=== PATIENT | male | born 1960 | race Caucasian/White ===

== ENCOUNTER 2017-11-30 14:34 | Observation (INO) | payer MEDICAID ==
[2017-11-30] MEDS ORDERED: Sodium Chloride 0.9% 1,000 ML IV ONE (14:43)
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
[2017-11-30 15:29] LABS: CHLORIDE,CL 104 mmol/L (98-107); SODIUM,NA 139 mmol/L (136-148)
--- NOTE | 2017-11-30 15:41 | CR ---
EXAMINATION: Portable chest radiograph. HISTORY: Syncope. FINDINGS: The trachea is midline. The cardiomediastinal silhouette is within normal limits. No pulmonary infilt rates, effusions or pneumothorax. Osseous structures appear unremarkable. IMPRESSION: No acute cardiopulmonary process.
[2017-11-30] MEDS ORDERED: Morphine 4 MG/ML Syringe IVPUSH PRN (18:34)
[2017-11-30] MEDS ORDERED: Sodium Chloride 0.9% 2.5 ML Syringe FLUSH PRN (18:34)
[2017-11-30] MEDS ORDERED: Albuterol/Ipratropium 3.0-0.5 MG/3 ML Neb Soln NEB PRN (18:34)
[2017-11-30] MEDS ORDERED: Sodium Chloride 0.9% 10 ML Syringe FLUSH PRN (18:34)
[2017-11-30] MEDS ORDERED: Albuterol 0.083% 2.5 MG/3 ML Neb Soln NEB PRN (20:11)
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
[2017-11-30] MEDS: Pantoprazole 40 MG Vial IVPUSH SCH (21:02)
[2017-12-01 06:45] LABS: CHLORIDE,CL 106 mmol/L (98-107); SODIUM,NA 138 mmol/L (136-148)
[2017-12-01] MEDS: Pantoprazole 40 MG Vial IVPUSH SCH ×2 (10:36→20:48)
--- NOTE | 2017-12-01 10:57 | CT ---
EXAM DATE: 11/30/17 PATIENT'S AGE: 57 Patient: LENNOX DIAZ Facility: [place], [place] Site . Site : 1960 Study: CT Head [id number] 3:28:39 PM Ordering Physician: Doctor Choudhury Final Report: INDICATION: Syncope TECHNIQUE: Head CT without contrast. COMPARISON: None FINDINGS: CSF spaces: Within normal limits for age. Brain parenchyma: Normal moore-white junction. No sign of mass, hemorrhage, or midline shift. Skull base and calvarium: The visualized paranasal sinuses and mastoid air cells demonstrate no acute or significant findings. The visualized orbits are grossly unremarkable. No skull fractures. IMPRESSION: No acute abnormality. Please note that all CT scans at this facility use dose modulation, iterative reconstruction, and/or weight-based dosing when appropriate to reduce radiation dose to as low as reasonably achievable. Dictated by Samra Jaramillo MD @ Nov 30 2017 4:05PM (Electronic Signature) Report Signed by Proxy. MTDD
[2017-12-01] MEDS: Sucralfate 1 GM Tab PO SCH ×3 (11:53→20:47)
--- NOTE | 2017-12-01 14:05 | US ---
EXAMINATION: Carotid US with moore scale and duplex imaging. HISTORY: Syncope FINDINGS: Ultrasound examination of bilateral cervical carotid arteries was performed using moore scale and dupl ex imaging. Mild to moderate scattered atheromatous plaque noted within the carotid arteries bilater ally. Antegrade flow is noted within the vertebrals. These are the peak velocities in cm per second (systole), right and left respectively, by a comma: CCA (common carotid artery) - 89, 94 ICA (internal carotid artery) - 111, 81 ECA (External carotid artery) - 108, 58 ICA/CCA systolic ratio Right - 1.6 Left - 0.9 IMPRESSION: 1. Atheromatous changes noted within the internal carotid arteries without elevated velocities, sugge sting less than 50% stenosis.
[2017-12-01] MEDS: Ferrous Sulfate 325 MG Tab PO SCH (16:39)
[2017-12-01] MEDS ORDERED: Ferrous Sulfate 325 MG Tab PO SCH (17:30)
--- NOTE | 2017-12-01 18:41 | PCM.PN ---
<Lang Parikh - Last Filed: 12/01/17 18:36> - General Info Date of Service: 12/01/17 Admission Dx/Problem (Free Text): Admission Diagnosis/Problem Admission Diagnosis/Problem Syncope Subjective Update: Patient is doing well this morning. He has no acute concerns. Is tolerating oral intake and voiding appropriately. He denies chest pain, palpitations, shortness breath, wheezing, cough, abdominal pain, nausea, vomiting, constipation, diarrhea, fever, dizziness, headaches. His hemoglobin is dropped 8.6 from 9.8. He denies any black stools or kaye red blood with bowel movements. He is concerned that he may have a gastric ulcer. He does take ibuprofen occasionally for joint pain. Functional Status: Reports: Pain Controlled, Tolerating Diet, Ambulating, Urinating - Review of Systems General: Reports: No Symptoms HEENT: Reports: No Symptoms Pulmonary: Reports: No Symptoms Cardiovascular: Reports: No Symptoms Gastrointestinal: Reports: No Symptoms Genitourinary: Reports: No Symptoms Musculoskeletal: Reports: No Symptoms Skin: Reports: No Symptoms Neurological: Reports: No Symptoms Psychiatric: Reports: No Symptoms - Patient Data Vitals - Most Recent: Last Vital Signs Temp 98.5 F 12/01/17 16:00 Pulse 80 12/01/17 16:00 Resp 20 12/01/17 16:00 BP 125/74 12/01/17 16:00 Pulse Ox 96 12/01/17 16:00 Orthostatic Blood Pressure [ 138/95 Standing] Orthostatic Blood Pressure [ 129/86 Sitting] Orthostatic Blood Pressure [ 143/79 Supine] Weight - Most Recent: 262 lb 3.2 oz I&O - Last 24 Hours: Intake & Output 12/01/17 12/01/17 12/01/17 06:59 14:59 22:59 Intake Total 500 1480 Output Total 275 450 Balance 225 1030 Lab Results Last 24 Hours: Laboratory Results - last 24 hr 11/30/17 11/30/17 12/01/17 Range/Units 20:35 22:18 02:37 WBC (4.0-11.0) K/uL RBC (4.50-5.90) M/uL Hgb (13.0-17.0) g/dL Hct (38.0-50.0) % MCV (80.0-98.0) fL MCH (27.0-32.0) pg MCHC (31.0-37.0) g/dL RDW Std Deviation (28.0-62.0) fl RDW Coeff of Buddy (11.0-15.0) % Plt Count (150-400) K/uL MPV (7.40-12.00) fL Nucleated RBC % /100WBC Nucleated RBCs # K/uL D-Dimer, Quantitative 0.41 (0.0-0.52) mg/LFEU Sodium (136-148) mmol/L Potassium (3.5-5.1) mmol/L Chloride (98-107) mmol/L Carbon Dioxide (21.0-32.0) mmol/L BUN (7.0-18.0) mg/dL Creatinine (0.8-1.3) mg/dL Est Cr Clr Drug Dosing mL/min Estimated GFR (MDRD) ml/min Glucose (74-106) mg/dL Calcium (8.5-10.1) mg/dL Magnesium (1.5-2.0) mg/dL Iron (50-175) ug/dL TIBC (250-450) ug/dL % Saturation (20-55) % Ferritin (26-388) ng/mL Total Bilirubin (0.2-1.0) mg/dL AST (15-37) IU/L ALT (14-63) IU/L Alkaline Phosphatase (46-116) U/L Troponin I < 0.050 < 0.050 (0.000-0.056) ng/mL Total Protein (6.4-8.2) g/dL Albumin (3.4-5.0) g/dL Globulin (2.0-3.5) g/dL Albumin/Globulin Ratio (1.3-2.8) 12/01/17 12/01/17 12/01/17 Range/Units 02:37 05:40 05:40 WBC 6.22 (4.0-11.0) K/uL RBC 3.80 L (4.50-5.90) M/uL Hgb 8.6 L (13.0-17.0) g/dL Hct 29.2 L (38.0-50.0) % MCV 76.8 L (80.0-98.0) fL MCH 22.6 L (27.0-32.0) pg MCHC 29.5 L (31.0-37.0) g/dL RDW Std Deviation 42.3 (28.0-62.0) fl RDW Coeff of Buddy 15 (11.0-15.0) % Plt Count 316 (150-400) K/uL MPV 9.60 (7.40-12.00) fL Nucleated RBC % 0.0 /100WBC Nucleated RBCs # 0 K/uL D-Dimer, Quantitative (0.0-0.52) mg/LFEU Sodium 138 (136-148) mmol/L Potassium 3.8 (3.5-5.1) mmol/L Chloride 106 (98-107) mmol/L Carbon Dioxide 26.8 (21.0-32.0) mmol/L BUN 14 (7.0-18.0) mg/dL Creatinine 1.1 (0.8-1.3) mg/dL Est Cr Clr Drug Dosing 77.96 mL/min Estimated GFR (MDRD) > 60.0 ml/min Glucose 109 H (74-106) mg/dL Calcium 8.3 L (8.5-10.1) mg/dL Magnesium 1.6 (1.5-2.0) mg/dL Iron 18 L (50-175) ug/dL TIBC 353 (250-450) ug/dL % Saturation 5.10 L (20-55) % Ferritin 11 L (26-388) ng/mL Total Bilirubin 0.3 (0.2-1.0) mg/dL AST 12 L (15-37) IU/L ALT 20 (14-63) IU/L Alkaline Phosphatase 79 (46-116) U/L Troponin I (0.000-0.056) ng/mL Total Protein 6.9 (6.4-8.2) g/dL Albumin 3.1 L (3.4-5.0) g/dL Globulin 3.8 H (2.0-3.5) g/dL Albumin/Globulin Ratio 0.8 L (1.3-2.8) Geovani Results Last 24 Hours: Microbiology 12/01/17 09:33 Stool Occult Blood (GEOVANI) - Final Stool / Feces Med Orders - Current: Current Medications Albuterol (Proventil Neb Soln) 2.5 mg NEB Q2H PRN PRN Reason: Shortness Of Breath/wheezing Albuterol/Ipratropium (Duoneb 3.0-0.5 Mg/3 Ml) 3 ml NEB Q4HRRT PRN PRN Reason: Shortness Of Breath/wheezing Ferrous Sulfate (Ferrous Sulfate) 325 mg PO TIDMEALS [facility] Last Admin: 12/01/17 16:39 Dose: 325 mg Pantoprazole Sodium (Protonix Iv) 40 mg IVPUSH BID [facility] Last Admin: 12/01/17 10:36 Dose: 40 mg Sodium Chloride (Saline Flush) 10 ml FLUSH ASDIRECTED PRN PRN Reason: Keep Vein Open Sodium Chloride (Saline Flush) 2.5 ml FLUSH ASDIRECTED PRN PRN Reason: Keep Vein Open Sucralfate (Carafate) 1 gm PO QIDACANDBED [facility] Last Admin: 12/01/17 16:39 Dose: 1 gm Discontinued Medications Ferrous Sulfate (Ferrous Sulfate) 325 mg PO TIDMEALS [facility] Sodium Chloride (Normal Saline) 1,000 mls @ 999 mls/hr IV STAT ONE Stop: 11/30/17 15:43 Last Admin: 11/30/17 14:57 Dose: 999 mls/hr Morphine Sulfate (Morphine) 2 mg IVPUSH Q2H PRN PRN Reason: Pain (severe 7-10) Stop: 12/01/17 18:35 - Exam General: Alert, Oriented, Cooperative, No Acute Distress Lungs: Clear to Auscultation, Normal Respiratory Effort Cardiovascular: Regular Rate, Regular Rhythm GI/Abdominal Exam: Normal Bowel Sounds, Soft, Non-Tender, No Organomegaly, No Distention, No Abnormal Bruit, No Mass, Pelvis Stable Extremities: Normal Inspection, Normal Range of Motion, Non-Tender, No Pedal Edema, Normal Capillary Refill Peripheral Pulses: 2+: Radial (L), Radial (R), Posterior Tibial (L), Posterior Tibial (R) Skin: Warm, Dry, Intact Neurological: No New Focal Deficit Psy/Mental Status: Alert, Normal Affect, Normal Mood - Problem List & Annotations (1) Iron deficiency anemia SNOMED Code(s): 76013493 Code(s): D50.9 - IRON DEFICIENCY ANEMIA, UNSPECIFIED Status: Acute Current Visit: Yes (2) Syncope SNOMED Code(s): 302406386 Code(s): R55 - SYNCOPE AND COLLAPSE Status: Acute Current Visit: Yes Qualifiers: Syncope type: unspecified Qualified Code(s): R55 - Syncope and collapse - Problem List Review Problem List Initiated/Reviewed/Updated: Yes - My Orders Last 24 Hours: My Active Orders 12/01/17 11:30 Sucralfate [Carafate] 1 gm PO QIDACANDBED - Plan Plan:: 57-year-old male admitted with syncope. #1. Syncope: -Patient remains on telemetry which shows normal sinus rhythm with heart rate between 60-70 bpm. -Carotid ultrasound was unremarkable. Echocardiogram is pending. -Serial troponins 3 are negative. #2. Iron deficiency anemia: -Hemoglobin has dropped to 8.6 from a previous high of 9.8. Patient denies black or bloody stools. -Patient was Hemoccult negative. -Iron studies are suggestive of iron deficiency anemia. Patient started on iron sulfate 325 mg 3 times a day with meals. Patient also started on Carafate. -I spoke with Dr. Drake, surgeon, in regards to possibly doing an EGD and colonoscopy while the patient is admitted. He recommends that if the patient is hemodynamically stable, that this can be done as an outpatient. Patient does remain hemodynamically stable. -Continue IV Protonix for possible upper GI bleed. -Repeat CBC in the morning. DVT prophylaxis: SCDs Disposition: 1-2 days pending improvement. <Shruthi Wilkins - Last Filed: 12/01/17 18:45> - Patient Data Vitals - Most Recent: Last Vital Signs Temp 98.5 F 12/01/17 16:00 Pulse 80 12/01/17 16:00 Resp 20 12/01/17 16:00 BP 125/74 12/01/17 16:00 Pulse Ox 96 12/01/17 16:00 Orthostatic Blood Pressure [ 138/95 Standing] Orthostatic Blood Pressure [ 129/86 Sitting] Orthostatic Blood Pressure [ 143/79 Supine] I&O - Last 24 Hours: Intake & Output 12/01/17 12/01/17 12/01/17 06:59 14:59 22:59 Intake Total 500 1480 Output Total 275 450 Balance 225 1030 Lab Results Last 24 Hours: Laboratory Results - last 24 hr 11/30/17 11/30/17 12/01/17 Range/Units 20:35 22:18 02:37 WBC (4.0-11.0) K/uL RBC (4.50-5.90) M/uL Hgb (13.0-17.0) g/dL Hct (38.0-50.0) % MCV (80.0-98.0) fL MCH (27.0-32.0) pg MCHC (31.0-37.0) g/dL RDW Std Deviation (28.0-62.0) fl RDW Coeff of Buddy (11.0-15.0) % Plt Count (150-400) K/uL MPV (7.40-12.00) fL Nucleated RBC % /100WBC Nucleated RBCs # K/uL D-Dimer, Quantitative 0.41 (0.0-0.52) mg/LFEU Sodium (136-148) mmol/L Potassium (3.5-5.1) mmol/L Chloride (98-107) mmol/L Carbon Dioxide (21.0-32.0) mmol/L BUN (7.0-18.0) mg/dL Creatinine (0.8-1.3) mg/dL Est Cr Clr Drug Dosing mL/min Estimated GFR (MDRD) ml/min Glucose (74-106) mg/dL Calcium (8.5-10.1) mg/dL Magnesium (1.5-2.0) mg/dL Iron (50-175) ug/dL TIBC (250-450) ug/dL % Saturation (20-55) % Ferritin (26-388) ng/mL Total Bilirubin (0.2-1.0) mg/dL AST (15-37) IU/L ALT (14-63) IU/L Alkaline Phosphatase (46-116) U/L Troponin I < 0.050 < 0.050 (0.000-0.056) ng/mL Total Protein (6.4-8.2) g/dL Albumin (3.4-5.0) g/dL Globulin (2.0-3.5) g/dL Albumin/Globulin Ratio (1.3-2.8) 12/01/17 12/01/17 12/01/17 Range/Units 02:37 05:40 05:40 WBC 6.22 (4.0-11.0) K/uL RBC 3.80 L (4.50-5.90) M/uL Hgb 8.6 L (13.0-17.0) g/dL Hct 29.2 L (38.0-50.0) % MCV 76.8 L (80.0-98.0) fL MCH 22.6 L (27.0-32.0) pg MCHC 29.5 L (31.0-37.0) g/dL RDW Std Deviation 42.3 (28.0-62.0) fl RDW Coeff of Buddy 15 (11.0-15.0) % Plt Count 316 (150-400) K/uL MPV 9.60 (7.40-12.00) fL Nucleated RBC % 0.0 /100WBC Nucleated RBCs # 0 K/uL D-Dimer, Quantitative (0.0-0.52) mg/LFEU Sodium 138 (136-148) mmol/L Potassium 3.8 (3.5-5.1) mmol/L Chloride 106 (98-107) mmol/L Carbon Dioxide 26.8 (21.0-32.0) mmol/L BUN 14 (7.0-18.0) mg/dL Creatinine 1.1 (0.8-1.3) mg/dL Est Cr Clr Drug Dosing 77.96 mL/min Estimated GFR (MDRD) > 60.0 ml/min Glucose 109 H (74-106) mg/dL Calcium 8.3 L (8.5-10.1) mg/dL Magnesium 1.6 (1.5-2.0) mg/dL Iron 18 L (50-175) ug/dL TIBC 353 (250-450) ug/dL % Saturation 5.10 L (20-55) % Ferritin 11 L (26-388) ng/mL Total Bilirubin 0.3 (0.2-1.0) mg/dL AST 12 L (15-37) IU/L ALT 20 (14-63) IU/L Alkaline Phosphatase 79 (46-116) U/L Troponin I (0.000-0.056) ng/mL Total Protein 6.9 (6.4-8.2) g/dL Albumin 3.1 L (3.4-5.0) g/dL Globulin 3.8 H (2.0-3.5) g/dL Albumin/Globulin Ratio 0.8 L (1.3-2.8) Geovani Results Last 24 Hours: Microbiology 12/01/17 09:33 Stool Occult Blood (GEOVANI) - Final Stool / Feces Med Orders - Current: Current Medications Albuterol (Proventil Neb Soln) 2.5 mg NEB Q2H PRN PRN Reason: Shortness Of Breath/wheezing Albuterol/Ipratropium (Duoneb 3.0-0.5 Mg/3 Ml) 3 ml NEB Q4HRRT PRN PRN Reason: Shortness Of Breath/wheezing Ferrous Sulfate (Ferrous Sulfate) 325 mg PO TIDMEALS [facility] Last Admin: 12/01/17 16:39 Dose: 325 mg Pantoprazole Sodium (Protonix Iv) 40 mg IVPUSH BID [facility] Last Admin: 12/01/17 10:36 Dose: 40 mg Sodium Chloride (Saline Flush) 10 ml FLUSH ASDIRECTED PRN PRN Reason: Keep Vein Open Sodium Chloride (Saline Flush) 2.5 ml FLUSH ASDIRECTED PRN PRN Reason: Keep Vein Open Sucralfate (Carafate) 1 gm PO QIDACANDBED [facility] Last Admin: 12/01/17 16:39 Dose: 1 gm Discontinued Medications Ferrous Sulfate (Ferrous Sulfate) 325 mg PO TIDMEALS [facility] Sodium Chloride (Normal Saline) 1,000 mls @ 999 mls/hr IV STAT ONE Stop: 11/30/17 15:43 Last Admin: 11/30/17 14:57 Dose: 999 mls/hr Morphine Sulfate (Morphine) 2 mg IVPUSH Q2H PRN PRN Reason: Pain (severe 7-10) Stop: 12/01/17 18:35 - Problem List & Annotations (1) Anemia SNOMED Code(s): 095376959 Code(s): D64.9 - ANEMIA, UNSPECIFIED Status: Acute Current Visit: Yes Qualifiers: Anemia type: unspecified type Qualified Code(s): D64.9 - Anemia, unspecified (2) Syncope SNOMED Code(s): 086010659 Code(s): R55 - SYNCOPE AND COLLAPSE Status: Acute Current Visit: Yes Qualifiers: Syncope type: unspecified Qualified Code(s): R55 - Syncope and collapse (3) Iron deficiency anemia SNOMED Code(s): 49894382 Code(s): D50.9 - IRON DEFICIENCY ANEMIA, UNSPECIFIED Status: Acute Current Visit: Yes - My Orders Last 24 Hours: My Active Orders 11/30/17 18:34 Oxygen Therapy [RC] PRN Up ad Alyse [RC] ASDIRECTED Vital Signs [RC] Q4H Albuterol/Ipratropium [DuoNeb 3.0-0.5 MG/3 ML] 3 ml NEB Q4HRRT PRN Sodium Chloride 0.9% [Saline Flush] 10 ml FLUSH ASDIRECTED PRN Sodium Chloride 0.9% [Saline Flush] 2.5 ml FLUSH ASDIRECTED PRN Peripheral IV Insertion Adult [OM.PC] Routine Saline Lock Insert [OM.PC] Routine 11/30/17 18:35 Pulse Oximetry [RC] PRN Sequential Compression Device [OM.PC] Per Unit Routine 11/30/17 18:36 RT Aerosol Therapy [RC] ASDIRECTED 11/30/17 20:11 Oxygen Therapy [RC] PRN Up ad Alyse [RC] ASDIRECTED VTE/DVT Education [RC] PER UNIT ROUTINE Vital Signs [RC] Q4H Consult to Physician [CONS] Routine Albuterol [Proventil Neb Soln] 2.5 mg NEB Q2H PRN Resuscitation Status Routine 11/30/17 20:13 Intake and Output [RC] Q12H Pulse Oximetry [RC] PRN 11/30/17 20:16 Notify Provider Consults [RC] ASDIRECTED RT Aerosol Therapy [RC] ASDIRECTED 11/30/17 20:24 Telemetry Monitoring [Cardiac Monitoring] [RC] Q8H 11/30/17 21:00 Pantoprazole [ProTONIX IV] 40 mg IVPUSH BID 12/01/17 Echo Comp wo Cont [US] Stat 12/01/17 08:35 Overnight Pulse Oximetry [RC] Click to Edit Pulse Oximetry Continuous Monitoring [OM.PC] Routine 12/01/17 08:38 Notify Provider Consults [RC] ASDIRECTED 12/01/17 09:50 Notify Provider Consults [RC] ASDIRECTED 12/01/17 10:46 Communication Order [RC] ROUTINE 12/01/17 17:30 Ferrous Sulfate 325 mg PO TIDMEALS 12/02/17 05:11 CBC W/O DIFF,HEMOGRAM [HEME] AM COMPREHENSIVE METABOLIC PN,CMP [CHEM] AM MAGNESIUM [CHEM] AM 12/03/17 05:11 CBC W/O DIFF,HEMOGRAM [HEME] AM COMPREHENSIVE METABOLIC PN,CMP [CHEM] AM MAGNESIUM [CHEM] AM - Plan Plan:: Patient seen and examined ,discussed with resident , agree with a/p. Cardiology will see patient tonight. D dimer negative Will monitor Hb. Health Underwriter recommended ischemic work up .
--- NOTE | 2017-12-01 20:37 | CONS ---
DATE OF CONSULTATION: DATE OF : 1960 PRIMARY CARE PHYSICIAN: None PCP REASON FOR CONSULTATION: Recurrent syncope. HISTORY OF PRESENT ILLNESS: This is a 57-year-old male who does not have prior cardiac history and has not seen a doctor in quite sometime. He presented to the emergency room due to the recurrent syncopal episode over the past 2 weeks. He is from [place] and he has lived here in [place] in [facility] for 2 years, here for the job. 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 Over the past 2 weeks, he stated that he has passed out at least 3-4 times he remembers. The first time he was in the bathroom, started being dizzy, lightheaded, had dry heave, and then all of a sudden he passed out. The warning symptom was for about 1 minute. He remember he hit his face to the cabinet and then he woke up, he felt like tired, shaky, drain, some sweating. No chest pain. No heart racing. Then, on the Wednesday morning, when he was at work and about 2:30, he started feeling dry heaves, sick, lightheaded again. The warnings symptoms lasted for about 1 to 2 minute. Then, he stopped whatever he was doing at work, then he tried to rest, and then all of a sudden he just became unconscious. He woke up. He thinks he might have been out for an hour. When he woke up, he felt like drain and tired. Another time, when he was driving home. When he was driving, he started having lightheaded. He felt like dry mouth and felt sick again and then he stopped driving, felt dizzy and then all of a sudden he passed out. When he woke up, he got wet because he vomited as well. Then, he talked about this to his son, his son told him to come to the emergency room. When he came to the emergency room, he got observed overnight in the telemetry, he did not show any significant AV block or tachycardia. He only showed occasional PVCs. EKG is unremarkable. Orthostatic vital signs negative for hypertension. Echocardiogram showed preserved ejection fraction. No significant valvular heart disease. He denied any breathing problem, dyspnea on exertion. His job is very physical and he did not have any problems with chest pain, palpitation, shortness of breath, leg swelling, leg pain, orthopnea, PND. PAST MEDICAL HISTORY: The patient denies history of diabetes, hypertension, or hyperlipidemia. SOCIAL HISTORY: He was former smoker. Drinks alcohol occasionally. No drug use. FAMILY HISTORY: No family history of CAD in his parents. ALLERGIES: He has no known drug allergy. PHYSICAL EXAMINATION: VITAL SIGNS: Initial blood pressure is 148/89, but it did come down to 125/74. The heart rate is ranging between 70 to 80s, temperature is 36.4, respiration 18 to 20, and O2 saturation is 97% on room air. HEENT: No pallor. No jaundice. Mouth, dry. HEART: Normal S1 and S2. No murmur. Regular rate and rhythm. LUNGS: Clear. No crackles. No wheezing. Equal breath sounds bilaterally. ABDOMEN: Soft, nontender. Bowel sounds are present. No hepatosplenomegaly. LEGS: No edema. LABORATORY INVESTIGATION: CBC showed WBC of 7, hematocrit of 32, hemoglobin of 9, platelet of 366. D- dimer is negative. Sodium 139, potassium 4.1, chloride 104, bicarb 26, BUN 18, creatinine 1.2. Troponin was negative x3. Iron pattern show iron deficiency. He denied bleeding in his rectum. No hematemesis as well. EKG showed sinus rhythm, heart rate of 82, DC interval 192, QRS duration 110, QTc interval 437. At the telemetry, he did not show significant AV block or significant tachycardia. He only showed PVC. Echocardiogram showing trace MR, trace TR with ejection fraction of 55% to 60%. Carotid ultrasound less than 50% stenosis. CT head is negative. Troponin was negative x3. ASSESSMENT AND PLAN: This is a 57-year-old male without prior cardiac history, presented to hospital because of syncope. His symptoms sounded to me like a vasovagal syncope; there is no apparent trigger. Currently, there is no arrhythmia detected on EKG or telemetry. His echo did not show any abnormal structure or heart problem and he has been ruled out for ACS. Head CT, carotid Doppler is negative. The vasovagal syncope could be recurred, so he gets the wanting symptom, he should stop the activity that he is doing and just lay down and rest his leg. Also, he should wear compression stocking as well as he would need ischemic workup done as an outpatient, 3-day heart monitor, and he should avoid driving. If the syncope recurred, we will recommend to check risk factor for CAD including diabetes and lipid panel. We will check a TSH as well. LO RUSS /[id number]
[2017-12-02 05:42] LABS: CHLORIDE,CL 104 mmol/L (98-107); SODIUM,NA 139 mmol/L (136-148)
[2017-12-02] MEDS: Sucralfate 1 GM Tab PO SCH ×2 (06:40→10:56)
[2017-12-02] MEDS: Ferrous Sulfate 325 MG Tab PO SCH ×2 (08:20→12:43)
[2017-12-02] MEDS: Pantoprazole 40 MG Vial IVPUSH SCH (08:20)
--- NOTE | 2017-12-03 18:23 | ECHO ---
The echocardiogram report can be seen in this patient's EMR (electronic medical record) in the Reports section. The echocardiogram report has also been scanned into PACS and can be seen there. JEFFERY
== END 2017-12-02 13:10 | disposition home or self-care (01) ==
LOC: MW.ED 14:34 → MW.MS 16:39
PROVIDERS: ADMIT Internal Medicine; ATTEND Internal Medicine
DX: R55 Syncope and collapse (principal); E66.9 Obesity, unspecified; D50.9 Iron deficiency anemia, unspecified; Z87.891 Personal history of nicotine dependence
CPT/HCPCS: 36415; 70450; 71045; 80053; 80061; 82272; 82728; 83036; 83550; 83735; 84443; 84484; 85025; 85027; 85379; 93306; 93880; 96361; 96374; 96376; 99285; A9270; C9113; G0378; J7040; 96360

== ENCOUNTER 2018-02-18 07:47 | Day surgery (SDC) | payer MEDICAID ==
[~2018-02-18 07:47] MED LIST: Lactated Ringers 1,000 ML IV SCH
[2018-02-18] MEDS ORDERED: Propofol 200 MG/20 ML SDV ONE ×3 (08:24→09:52)
[2018-02-18] MEDS ORDERED: Lidocaine 2% 5 ML SDV ONE (08:24)
[2018-02-18] MEDS ORDERED: fentaNYL 100 MCG/2 ML SDV ONE (08:24)
--- NOTE | 2018-02-18 08:53 | PCM.PREANE ---
Preanesthetic Assessment - Procedure Proposed Procedure: EGD and colonoscopy for anemia - Anesthesia/Transfusion/Family Hx Anesthesia History: Prior Anesthesia Without Reaction Transfusion History: Prior Transfusion Without Reaction - Review of Systems General: No Symptoms Pulmonary: No Symptoms Cardiovascular: Other (recent episode of syncope and was seen in ER and HGB was 8.6. Pt admitted and recieved PRBC) Gastrointestinal: No Symptoms Neurological: No Symptoms Other: Reports: None - Physical Assessment NPO Status Date: 02/17/18 NPO Status Time: 20:00 O2 Sat by Pulse Oximetry: 93 Respiratory Rate: 16 Vital Signs: Last Vital Signs Temp 36.6 C 02/18/18 08:33 Pulse 87 02/18/18 08:33 Resp 16 02/18/18 08:33 BP 119/73 02/18/18 08:33 Pulse Ox 93 L 02/18/18 08:33 Height: 5 ft 11 in Weight: 117.48 kg ASA Class: 2 Mental Status: Alert & Oriented x3 Airway Class: Mallampati = 1 Dentition: Reports: Missing Tooth/Teeth (bottom left tooth) Thyro-Mental Finger Breadths: 3 Mouth Opening Finger Breadths: 3 ROM/Head Extension: Full - Allergies Allergies/Adverse Reactions: Allergies Allergy/AdvReac Type Severity Reaction Status Date / Time No Known Allergies Allergy Verified 02/15/18 08:30 - Blood Blood Available: No - Acknowledgements Anesthesia Type Planned: MAC Pt an Appropriate Candidate for the Planned Anesthesia: Yes Alternatives and Risks of Anesthesia Discussed w Pt/Guardian: Yes Pt/Guardian Understands and Agrees with Anesthesia Plan: Yes PreAnesthesia Questionnaire - Past Health History Medical/Surgical History: Denies Medical/Surgical History Cardiovascular History: Reports: High Cholesterol, Syncope Other Cardiovascular History: EKG 11/30/17 Sinus Rhythm, Echo EF 55-60% normal findings Musculoskeletal History: Reports: Arthritis, Back Pain, Chronic Neurological History: Reports: Head Trauma Psychiatric History: Reports: Anxiety Endocrine/Metabolic History: Reports: Diabetes, Type II, Obesity/BMI 30+ Hematologic History: Reports: Anemia - Past Surgical History Head Surgeries/Procedures: Reports: None - SUBSTANCE USE Smoking Status *Q: Former Smoker Tobacco Use Within Last Twelve Months: Cigarettes Recreational Drug Use History: No - HOME MEDS Home Medications: Home Meds Pantoprazole Sodium [Protonix] 40 mg PO DAILY #30 tablet. 12/02/17 [Rx] RX: Ferrous Sulfate 325 mg PO TIDMEALS #90 tablet 12/02/17 [Rx] RX: metFORMIN [Glucophage XR] 500 mg PO BIDMEALS #60 tab.er 12/02/17 [Rx] Sucralfate [Carafate] 1 gm PO QID #120 tablet 12/02/17 [Rx] RX: Rosuvastatin Calcium 20 mg PO DAILY 02/15/18 [History] - CURRENT (IN HOUSE) MEDS Current Meds: Current Medications Lactated Ringer's (Ringers, Lactated) 1,000 mls @ 125 mls/hr IV ASDIRECTED LUX Discontinued Medications Fentanyl (Sublimaze) Confirm Administered Dose 100 mcg .ROUTE .STK-MED ONE Stop: 02/18/18 08:25 Lidocaine (Xylocaine-Mpf 2%) Confirm Administered Dose 5 ml .ROUTE .STK-MED ONE Stop: 02/18/18 08:25 Propofol (Diprivan 20 Ml) Confirm Administered Dose 400 mg .ROUTE .STK-MED ONE Stop: 02/18/18 08:25
[2018-02-18] MEDS ORDERED: Midazolam 1 MG/ML 2 ML SDV ONE (09:40)
--- NOTE | 2018-02-18 10:13 | PCM.OPNOTE ---
- General Post-Op/Procedure Note Date of Surgery/Procedure: 02/18/18 Operative Procedure(s): 1) egd w bx. 2) colonoscopy w snare polypectomy Findings: see dict [id number] Pre Op Diagnosis: anemia Post-Op Diagnosis: Same Anesthesia Technique: Moderate Sedation Primary Surgeon: Shahid Adam Pathology: 1) egd bx 2) colon mass, tattooed, apple core, at 90cm when scope went in; 1 cm pedunculated polyp at 9 cm Complications: None Condition: Good
--- NOTE | 2018-02-18 10:40 | PCM.POSTAN ---
POST ANESTHESIA ASSESSMENT - MENTAL STATUS Mental Status: Alert, Oriented - RESPIRATORY Respiratory Status: Respiratory Rate WNL, Airway Patent, O2 Saturation Stable - CARDIOVASCULAR CV Status: Pulse Rate WNL, Blood Pressure Stable - GASTROINTESTINAL GI Status: No Symptoms - PAIN Pain Score: 0 - POST OP HYDRATION Hydration Status: Adequate & Stable
--- NOTE | 2018-02-18 10:58 | PCM48HPAN ---
Post Anesthesia Note - EVALUATION WITHIN 48HRS OF ANESTHETIC Vital Signs in Normal Range: Yes Patient Participated in Evaluation: Yes Respiratory Function Stable: Yes Airway Patent: Yes Cardiovascular Function Stable: Yes Hydration Status Stable: Yes Pain Control Satisfactory: Yes Nausea and Vomiting Control Satisfactory: Yes Mental Status Recovered: Yes Resp Rate: 13
--- NOTE | 2018-02-18 13:28 | OR ---
SURGEON: Shahid Adam MD DATE OF PROCEDURE: 02/18/2018 PREOPERATIVE DIAGNOSIS: Anemic, requiring blood transfusion. POSTOPERATIVE DIAGNOSIS: Colon mass. PROCEDURES PERFORMED: EGD with biopsy and colonoscopy with biopsy and snare polypectomy. PROCEDURE IN DETAIL: EGD: The patient was taken to the endoscopy room, and with the WOOL FLEECE SORTER, Diprivan was administered. A well-lubricated EGD scope was gently inserted through the oropharynx, down the esophagus, passing through the gastroesophageal junction, into the stomach. The mucosa was examined upon the passage. Any etiology will be noted. Once in the stomach, we continued to advance to the distal antrum, passed through the pylorus into the second portion of the duodenum. Again, the mucosa was examined for any abnormality and etiology. The scope was then retrieved back to the stomach and then retroflexed to look at the fundus of the stomach. If a biopsy was indicated, we will biopsy the antrum, body, and gastroesophageal junction. The air will be sucked out while the scope is retrieved to reduce the patient's discomfort. The patient tolerated the procedure well. There were no intraoperative complications. Dr. Adam was present through the whole procedure. Prior to surgery, a time-out had been called, the patient identified, procedure identified and antibiotic administered. The patient was taken to the endoscopy room. A time out was called, patient identified, and procedure identified. Diprivan was then administrated. Patient went from awake to sleep, hearing doctor talking or door closing is normal. Perineum inspection and digital examination were then performed. A well- lubricated colonoscope was gently inserted through the rectum, advanced past the rectosigmoid junction, the descending colon, splenic flexure, transverse colon, hepatic flexure, ascending colon, arrived to the cecum. Cecum was identified as dictated in the finding. Then the scope was carefully withdrawn while attention was paid to the mucosal surface for any abnormality. Air will be sucked out during the scope withdrawal. At the rectum, retroflexed to examine any rectal diseases, fistula or hemorrhoids. During mucosal examination, abnormality or polyp encountered. Using snare equipment, the abnormality or the polyp was then snared off using electrocautery. The Patient tolerated procedure well. There were no intraoperative complications, and Dr. Adam was present throughout the whole procedure. EGD FINDINGS: 1. The patient is easily sedated with WOOL FLEECE SORTER and Diprivan, the patient is soundly snoring. 2. Oropharynx and proximal esophagus are free of disease and no stricture or inflammation. Mild salmon color change consistent with mild acid reflux. Stomach rugae is normal in appearance. Antrum is grossly normal and duodenum is grossly normal. A retroflexed look at the fundus of stomach, there is no hiatal hernia. Biopsy done at antrum, body, and GE junction at 40 and sucked out the guess while scope pulling out. COLONOSCOPY FINDIN. The patient is easily sedated with WOOL FLEECE SORTER and Diprivan, the patient is soundly snoring. 2. Bowel prep is average with some liquid stool, no semi-formed stool. 3. The patient's colon is straight forward and we cannot finish the colonoscopy as there is apple-core lesion and it is very tight and we cannot get through. That was tattooed. The patient has mild diverticulosis. The scope is up to 1.2 meters and the ileocecal valve is not able to be observed. Encountered tight apple-core lesion at distance of 900. 4. Biopsy was done and the area was tattooed with ink. There was also mild diverticulosis. No signs or symptoms of diverticulitis. Random biopsy has been done as that was seen as a little bit inflamed and random biopsy was done at 1 m, some kind like a colitis. The patient has a 1 cm pedunculated polyp at distance of 10 cm in the colonoscope. It was removed with snare polypectomy and sent for pathology. The patient does not have internal hemorrhoids. The patient has external hemorrhoids. The patient will come back to the office and discuss about the management of the apple-core lesion and workup will include CAT scan with p.o. and IV contrast. DANIEL RUSS /[id number]
== END 2018-02-18 11:15 | disposition home or self-care (01) ==
LOC: MW.SDS 07:47
PROVIDERS: ATTEND Surgery
DX: D64.9 Anemia, unspecified (principal); C18.9 Malignant neoplasm of colon, unspecified; D12.8 Benign neoplasm of rectum; K29.00 Acute gastritis without bleeding; K29.50 Unspecified chronic gastritis without bleeding; B96.81 Helicobacter pylori [H. pylori] as the cause of diseases classified elsewhere; K20.9 Esophagitis, unspecified; K57.30 Diverticulosis of large intestine without perforation or abscess without bleeding; K64.4 Residual hemorrhoidal skin tags; E11.9 Type 2 diabetes mellitus without complications; E66.9 Obesity, unspecified; Z68.36 Body mass index [BMI] 36.0-36.9, adult; E78.00 Pure hypercholesterolemia, unspecified; F41.9 Anxiety disorder, unspecified; Z87.891 Personal history of nicotine dependence; Z79.84 Long term (current) use of oral hypoglycemic drugs; Z79.899 Other long term (current) drug therapy
CPT/HCPCS: 43239; 45381; 45385; 82962; J2250; J3010; J2704

== ENCOUNTER 2018-05-13 08:11 | Day surgery (SDC) | payer MEDICAID ==
[~2018-05-13 08:11] MED LIST changes: +Lidocaine 2% 5 ML SDV ONE; +Midazolam 1 MG/ML 2 ML SDV ONE; +Propofol 200 MG/20 ML SDV ONE; +ceFAZolin 2 GM in Premix Bag 1 BAG IV SCH; +fentaNYL 100 MCG/2 ML SDV ONE
--- NOTE | 2018-05-13 09:15 | PCM.PREANE ---
Preanesthetic Assessment - Procedure Proposed Procedure: port placement for chemotherapeutics - Anesthesia/Transfusion/Family Hx Anesthesia History: Prior Anesthesia Reaction Family History of Anesthesia Reaction: No Transfusion History: No Prior Transfusion(s) Intubation History: Unknown Additional History: s/p robotic assisted right hemicolectomy surgery - Review of Systems General: No Symptoms Pulmonary: Shortness of Breath, Other (quit smoking recently) Cardiovascular: Other (HLD) Gastrointestinal: Other (GERD/PUD) Other: Reports: Diabetes - Physical Assessment NPO Status Date: 05/12/18 NPO Status Time: 22:00 O2 Sat by Pulse Oximetry: 97 Height: 5 ft 11 in Weight: 239 lb ASA Class: 3 Mental Status: Alert & Oriented x3 Airway Class: Mallampati = 1 Dentition: Reports: Normal Dentition, Missing Tooth/Teeth (lower) Thyro-Mental Finger Breadths: 3 Mouth Opening Finger Breadths: 3 ROM/Head Extension: Full Lungs: Clear to Auscultation, Normal Respiratory Effort Cardiovascular: Regular Rate, Regular Rhythm, No Murmurs - Allergies Allergies/Adverse Reactions: Allergies Allergy/AdvReac Type Severity Reaction Status Date / Time No Known Allergies Allergy Verified 05/11/18 12:52 - Blood Blood Available: No Product(s) Available: None - Anesthesia Plan Pre-Op Medication Ordered: None - Acknowledgements Anesthesia Type Planned: General Anesthesia (vs MAC/local ), MAC Pt an Appropriate Candidate for the Planned Anesthesia: Yes Alternatives and Risks of Anesthesia Discussed w Pt/Guardian: Yes Pt/Guardian Understands and Agrees with Anesthesia Plan: Yes PreAnesthesia Questionnaire - Past Health History Medical/Surgical History: Denies Medical/Surgical History HEENT History: Reports: Other (See Below) Other HEENT History: wears reading glasses, states has recently developed floaters in his field of vision Cardiovascular History: Reports: High Cholesterol Other Cardiovascular History: EKG 11/30/17 Sinus Rhythm, Echo EF 55-60% normal findings Respiratory History: Reports: Other (See Below) Other Respiratory History: former smoker Gastrointestinal History: Reports: Chronic Constipation, GERD, GI Bleed, Other ( See Below) Other Gastrointestinal History: hx of H-Pylori Musculoskeletal History: Reports: Arthritis Neurological History: Reports: Concussion, Head Trauma Psychiatric History: Reports: Anxiety Endocrine/Metabolic History: Reports: Diabetes, Type II, Obesity/BMI 30+ Hematologic History: Reports: Anemia Oncologic (Cancer) History: Reports: Colon - Past Surgical History GI Surgical History: Reports: Colon, Colonoscopy, EGD Other GI Surgeries/Procedures: hx of Right Hemicolectomy - SUBSTANCE USE Smoking Status *Q: Former Smoker Tobacco Use Within Last Twelve Months: Cigarettes Recreational Drug Use History: No - HOME MEDS Home Medications: Home Meds Ferrous Sulfate 325 mg PO TIDMEALS #90 tablet 12/02/17 [Rx] Pantoprazole Sodium [Protonix] 40 mg PO DAILY #30 tablet.dr 12/02/17 [Rx] metFORMIN [Glucophage XR] 500 mg PO BIDMEALS #60 tab.er 12/02/17 [Rx] Rosuvastatin Calcium 20 mg PO DAILY 02/15/18 [History] Sucralfate [Carafate] 1 gm PO TID 05/11/18 [History] - CURRENT (IN HOUSE) MEDS Current Meds: Current Medications Cefazolin Sodium/Dextrose 2 gm (/ Premix) 50 mls @ 100 mls/hr IV ONETIME LUX Lactated Ringer's (Ringers, Lactated) 1,000 mls @ 125 mls/hr IV ASDIRECTED LUX Discontinued Medications Fentanyl (Sublimaze) Confirm Administered Dose 100 mcg .ROUTE .STK-MED ONE Stop: 05/13/18 07:46 Lidocaine (Xylocaine-Mpf 2%) Confirm Administered Dose 5 ml .ROUTE .STK-MED ONE Stop: 05/13/18 07:45 Midazolam HCl (Versed 1 Mg/Ml) Confirm Administered Dose 2 mg .ROUTE .STK-MED ONE Stop: 05/13/18 07:46 Propofol (Diprivan 20 Ml) Confirm Administered Dose 200 mg .ROUTE .STK-MED ONE Stop: 05/13/18 07:45
[2018-05-13] MEDS ORDERED: ceFAZolin/Dextrose,Iso-Osmotic 2 GM/50 ML Duplex Bag IV ONE (09:26)
[2018-05-13] MEDS ORDERED: Bupivacaine 0.5% 10 ML SDV ONE (10:12)
[2018-05-13] MEDS ORDERED: Iopamidol 408 MG/ML 50 ML SDV ONE (10:13)
[2018-05-13] MEDS ORDERED: Heparin Sodium 100 Units/ML 3 ML Syringe ONE (10:13)
[2018-05-13] MEDS ORDERED: Lidocaine 1% 20 ML MDV ONE (10:13)
[2018-05-13] MEDS ORDERED: Propofol 200 MG/20 ML SDV ONE ×3 (11:00→12:05)
[2018-05-13] MEDS ORDERED: Ondansetron 4 MG/2 ML SDV ONE (11:22)
[2018-05-13] MEDS ORDERED: Lactated Ringers 1,000 ML IV SCH (12:15)
[2018-05-13] MEDS ORDERED: Acetaminophen/HYDROcodone 325-10 MG Tab PO PRN (12:15)
--- NOTE | 2018-05-13 12:21 | PCM.OPNOTE ---
- General Post-Op/Procedure Note Date of Surgery/Procedure: 05/13/18 Operative Procedure(s): Placement of Bard PowerPort Pre Op Diagnosis: Metastatic colon cancer Post-Op Diagnosis: Same Anesthesia Technique: Local, MAC (ASA III) Primary Surgeon: Kunal Drake Fluid Replacement, Intraop: 900 EBL in mLs: 10 Condition: Good Free Text/Narrative:: DICTATION [id number] CPT CODE [id number]
[2018-05-13] MEDS: fentaNYL 100 MCG/2 ML SDV IVPUSH PRN ×2 (12:28→12:33)
--- NOTE | 2018-05-13 12:55 | PCM.POSTAN ---
POST ANESTHESIA ASSESSMENT - MENTAL STATUS Mental Status: Alert, Oriented - RESPIRATORY Respiratory Status: Respiratory Rate WNL, Airway Patent, O2 Saturation Stable - CARDIOVASCULAR CV Status: Pulse Rate WNL, Blood Pressure Stable - GASTROINTESTINAL GI Status: No Symptoms - POST OP HYDRATION Hydration Status: Adequate & Stable
--- NOTE | 2018-05-13 13:11 | CR ---
EXAMINATION: Portable chest radiograph. HISTORY: Port-A-Cath placement. FINDINGS: The trachea is midline. The cardiomediastinal silhouette is within normal limits. No pulmonary infiltrates, effusions or pneumothorax. There is a left-sided vanessa catheter noted with tip in the SVC. Mild bibasilar atelectasis. Osseous structures appear unremarkable. IMPRESSION: No acute cardiopulmonary process.
--- NOTE | 2018-05-13 13:20 | OR ---
SURGEON: Kunal Drake M.D. DATE OF PROCEDURE: 05/13/2018 OPERATION PERFORMED: Placement of Bard PowerPort for upcoming chemotherapy. ANESTHESIA: Local MAC. ASA CLASSIFICATION: III. PREOPERATIVE DIAGNOSIS: Metastatic carcinoma of the colon. POSTOPERATIVE DIAGNOSIS: Metastatic carcinoma of the colon. ESTIMATED BLOOD LOSS: 10 mL. INTRAOPERATIVE FLUID REPLACEMENT: 900 mL of crystalloid. DESCRIPTION OF PROCEDURE: The patient was taken to the operating room and placed on the fluoroscopy table in the supine position. Surgical site had been marked prior to the patient entering the operating room. Time-out was called for appropriate identification of the patient and procedure. Monitored anesthesia care was provided. The surgical site was prepped with pHisohex and sterile drapes were applied. The skin incision was initially marked out in the deltopectoral groove. The skin was then infiltrated with 1% Xylocaine and 0.5% Marcaine solution. The skin incision was made and deepened through the subcutaneous tissue obtaining hemostasis with the use of electrocautery. Dissection in the deltopectoral groove did not reveal a satisfactory cephalic vein to work with. Therefore, the left subclavian vein was cannulated using a Seldinger technique. The skin underlying the junction of the medial two-third and lateral third was again infiltrated with 1% Xylocaine and 0.5% Marcaine solution. The subclavian vein was cannulated on the first pass. Guidewire was placed through the needle into the subclavian vein and with the aid of fluoroscopy, positioned in the superior vena cava. Small skin incision was then made. The peel-away sheath and introducer were passed over the guidewire into the subclavian vein. The introducer and guidewire were removed and the heparin-flushed catheter was positioned through the peel-away sheath and position confirmed fluoroscopically. The peel-away sheath was then removed. The catheter was placed in the subcutaneous tunnel from the small puncture site into the deltopectoral incision. A second incision was identified on the anterior chest wall. Again, the skin infiltrated with 1% Xylocaine and 0.5% Marcaine solution. The skin incision was made and deepened into the subcutaneous tissue obtaining hemostasis with the use of electrocautery. Subcutaneous pocket was made. The port, which had been flushed with heparin was now brought to the operating table and with care taken to avoid an air embolus, the catheter was cut to appropriate length and the catheter and port were connected securing them with the locking device. The fluoroscope was again used to confirm the position and the catheter is located in the superior vena cava. The wounds were inspected for hemostasis and small bleeding sites were electrocoagulated. The deltopectoral and chest wall incisions were closed in 2 layers approximating the subcutaneous tissue with 3-0 Vicryl and the skin with subcuticular 4-0 Monocryl. The small puncture site below the left clavicle was closed with 4-0 Monocryl. All incisions were Steri- Stripped and dressed with sterile Tegaderm pads. Sponge, needle, and instrument counts were all correct. The patient tolerated the procedure well and was taken to recovery room in satisfactory condition. Chest x-ray will be obtained in recovery room. APOLINAR RUSS /[id number]
--- NOTE | 2018-05-13 13:24 | PCM48HPAN ---
Post Anesthesia Note - EVALUATION WITHIN 48HRS OF ANESTHETIC Vital Signs in Normal Range: Yes Patient Participated in Evaluation: Yes Respiratory Function Stable: Yes Airway Patent: Yes Cardiovascular Function Stable: Yes Hydration Status Stable: Yes Pain Control Satisfactory: Yes Nausea and Vomiting Control Satisfactory: Yes Mental Status Recovered: Yes Resp Rate: 15
== END 2018-05-13 13:45 | disposition home or self-care (01) ==
LOC: MW.SDS 08:11
PROVIDERS: ATTEND Surgery
DX: C18.9 Malignant neoplasm of colon, unspecified (principal); E78.00 Pure hypercholesterolemia, unspecified; K59.09 Other constipation; K21.9 Gastro-esophageal reflux disease without esophagitis; M19.90 Unspecified osteoarthritis, unspecified site; D64.9 Anemia, unspecified; E11.9 Type 2 diabetes mellitus without complications; E66.9 Obesity, unspecified; Z68.33 Body mass index [BMI] 33.0-33.9, adult; F41.9 Anxiety disorder, unspecified; Z79.84 Long term (current) use of oral hypoglycemic drugs; Z79.899 Other long term (current) drug therapy; Z87.891 Personal history of nicotine dependence
CPT/HCPCS: 36561; 71045; 76000; A9270; J0690; J1642; J2250; J2405; J2704; J3010; J3490; J7120; Q9966